=== PATIENT | male | born 1970 | race Caucasian/White ===

== ENCOUNTER 2021-07-16 16:36 | Emergency (ER) | payer OTHER ==
[2021-07-16 17:57] LABS: BASOPHIL 0.8 % (0-2); EOSINOPHIL 1.4 % (0-5); HCT 43.4 % (42.0-52.0); HGB 15.6 g/dl (13.2-18.0); LYMPHOCYTE 15.2 % (15-48); MCH 35.1 pg (25.0-31.0); MCHC 35.9 g/dL (32.0-36.0); MCV 97.7 fL (78.0-100.0); MONOCYTE 10.8 % (0-12); MPV 9.9 fL (6.0-9.5); NEUTROPHIL 71.2 % (41-80); NRBC 0; PLT 222 K/uL (150-400); RBC 4.44 M/uL (4.70-6.00); RDW 11.9 % (11.5-14.0); WBC 10.6 K/uL (4.0-10.5)
[2021-07-16 18:09] LABS: INR 1.08 (0.9-1.2); PROTHROMBIN TIME 13.4 SECONDS (11.8-13.4); PTT 30.1 SECONDS (24.4-34.7)
[2021-07-16 18:13] LABS: ALBUMIN 3.8 g/dL (3.4-5.0); BILIRUBIN - TOTAL 0.5 mg/dL (0.2-1.0); BUN/CREAT RATIO (CALC) 12.4 RATIO; CREATININE 0.97 mg/dL (0.67-1.17); GLOBULIN (CALCULATION) 3.9 g/dL; POTASSIUM 3.8 mmol/L (3.5-5.1); TOTAL PROTEIN 7.7 g/dL (6.4-8.2)
[2021-07-16 18:50] LABS: BILIRUBIN NEGATIVE (NEGATIVE); BLOOD NEGATIVE Ery/uL (NEGATIVE); CLARITY CLEAR (CLEAR); COLOR YELLOW (YELLOW); GLUCOSE (U) NORMAL (NORMAL); LEUKOCYTES NEGATIVE Leu/uL (NEGATIVE); NITRITE NEGATIVE (NEGATIVE); PROTEIN NEGATIVE (NEGATIVE); SPECIFIC GRAVITY 1.015 (1.001-1.030); UROBILINOGEN 0.2 mg/dL (0.2-1.0); pH 7.5 (5.0-9.0)
[2021-07-16] MEDS ORDERED: CIPRO500 MG PO (21:59)
[2021-07-16] MEDS ORDERED: PERCOCET 5-3251 EACH PO (21:59)
[2021-07-16] MEDS ORDERED: METRONIDAZOLE500 MG PO (21:59)
== END 2021-07-16 22:05 | disposition home or self-care (01) ==
LOC: FER 16:36
PROVIDERS: Nurse Practitioner Family
DX: K57.32 Diverticulitis of large intestine without perforation or abscess without bleeding (principal); R91.1 Solitary pulmonary nodule; I10 Essential (primary) hypertension; Z28.310 Unvaccinated for COVID-19; Z88.5 Allergy status to narcotic agent
CPT/HCPCS: 36415; 71275; 80053; 81003; 83605; 84145; 84484; 85025; 85610; 85730; 87040; 93005; J1170; J2405; J3490; Q9967

== ENCOUNTER 2021-09-07 08:28 | Emergency (ER) | payer OTHER ==
[~2021-09-07 08:28] MED LIST: CIPRO500 MG PO; METRONIDAZOLE500 MG PO; PERCOCET 5-3251 EACH PO
[2021-09-07] MEDS ORDERED: KEFLEX250 MG PO (09:49)
== END 2021-09-07 10:03 | disposition home or self-care (01) ==
LOC: FER 08:28
DX: S01.01XA Laceration without foreign body of scalp, initial encounter (principal); I10 Essential (primary) hypertension; Z28.310 Unvaccinated for COVID-19; Z88.5 Allergy status to narcotic agent; Z79.899 Other long term (current) drug therapy; W22.8XXA Striking against or struck by other objects, initial encounter; Y93.89 Activity, other specified; Y92.810 Car as the place of occurrence of the external cause